=== PATIENT | female | born 1965 | race Caucasian/White ===

== ENCOUNTER 2017-04-04 18:14 | Emergency (ER) | payer SELFPAY ==
[2017-04-04 18:24] VITALS: BP 150/100; PULSE 94; TEMP 98.1; BMI 24.4
--- NOTE | 2017-04-04 19:05 | PDOC ---
History of Present Illness - General Chief Complaint: Injury Stated Complaint: LEFT ANKLE INJURY Time Seen by Provider: 04/04/17 18:23 - History of Present Illness Initial Comments: Chief complaint: Left ankle injury History of present illness: Patient twisted her ankle immediately [employer]. Pain and swelling laterally. Difficulty with weightbearing Review of systems: No distal numbness tingling or weakness of the foot or toes. No knee pain or pain/injury to the more proximal extremity. No other injuries including injuries to the head neck chest abdomen spine pelvis or other extremities. Past medical history: Hypothyroidism, elevated cholesterol. Both controlled Social/family history: Patient is visiting from [facility], has been here for 2 weeks, staying with friends, plans to return in one week. Denies drugs or alcohol or tobacco. No family history of bone or joint disease, early coronary artery disease, metabolic disease including diabetes, or cancer Physical exam: Alert oriented 3 well-developed well-nourished mild distress due to left ankle pain Afebrile, vital signs normal Head and neck atraumatic. PERRLA, ENT clear Chest clear. No chest wall rib cage tenderness or deformity CV regular without murmur rub or gallop Abdomen benign Pelvic and spine without tenderness or deformity Extremities without injury except for the left ankle. There is moderate swelling of the ankle, most prominent laterally, but with point tenderness of the medial and lateral malleoli. There is no deformity. No instability. Pulses are full. No sensory or motor deficits. And good capillary refill in the toes Impression: Sprain rule out fracture Plan: X-ray and further orthopedic management depending on results Past History - Past Medical History Allergies/Adverse Reactions: Allergies Allergy/AdvReac Type Severity Reaction Status Date / Time aspirin Allergy Verified 04/04/17 18:14 Sulfa (Sulfonamide Allergy Verified 04/04/17 18:14 Antibiotics) Home Medications: Ambulatory Orders Ibuprofen 400 mg PO ASDIR PRN 04/04/17 Oxycodone HCl/Acetaminophen [Percocet 10-325 mg Tablet] 1 tab PO Q4HWA PRN #20 tablet MDD 4 04/04/17 COPD: No Other medical history: DENIES - Suicide/Smoking/Psychosocial Hx Smoking History: Never smoked Have you smoked in the past 12 months: No Hx Alcohol Use: No Drug/Substance Use Hx: No *Physical Exam - Vital Signs Last Vital Signs Temp Pulse Resp BP Pulse Ox 98.1 F 94 H 18 150/100 100 04/04/17 18:12 04/04/17 18:12 04/04/17 18:12 04/04/17 18:12 04/04/17 18:12 ED Treatment Course - RADIOLOGY Radiology Studies Ordered: Category Date Time Status ANKLE-LEFT [RAD] Stat Radiology 04/04/17 18:23 Taken Medical Decision Making - Medical Decision Making 04/08/17 07:16 X-ray reveals a nondisplaced non-comminuted fracture of the medial malleolus. There is also a nondisplaced comminuted fracture of the distal fibula. The ankle mortise appears intact, however, the medial malleolar fracture extends into the joint space. There is probably considerable injury to the lateral ankle ligaments as well, given the extent of soft tissue swelling laterally Dr. Burr was contacted by phone. The injury as well as the x-ray findings were discussed. He recommended crutches and nonweightbearing and office follow- up Martinez dressing was applied. Patient was fitted with crutches and appeared to be able to ambulate adequately without weightbearing to the ankle. Analgesics were prescribed and she was instructed to follow-up with orthopedist. No significant pain or other distress upon discharge with family to follow-up as directed. 04/08/17 07:24 *DC/Admit/Observation/Transfer Diagnosis at time of Disposition: Fracture of distal end of tibia Qualifiers: Encounter type: initial encounter Fracture type: closed Fracture morphology: torus Laterality: left Qualified Code(s): S82.312A - Torus fracture of lower end of left tibia, initial encounter for closed fracture - Discharge Dispostion Disposition: HOME Condition at time of disposition: Improved Admit: No - Prescriptions Prescriptions: Oxycodone HCl/Acetaminophen [Percocet 10-325 mg Tablet] 1 tab PO Q4HWA PRN #20 tablet MDD 4 PRN Reason: Severe Pain - Referrals Referrals: Eliseo Burr MD [Staff Physician] - 1 week - Patient Instructions Printed Discharge Instructions: How to Use Crutches, DI for Ankle Fracture, How to Apply an Brennan Wrap Additional Instructions: Do not bear weight on the leg until further consultation with orthopedist Rest ice and elevate until swelling resolves. See orthopedist 5-7 days for further evaluation and treatment. Return to the hospital ER immediately if there is numbness tingling or severe pain in the foot or the toes. - Post Discharge Activity Forms/Work/School Notes: Back to Work
== END 2017-04-04 19:15 | disposition home or self-care (01) ==
LOC: FER 18:14
DX: S82.312A Torus fracture of lower end of left tibia, initial encounter for closed fracture (principal); X58.XXXA Exposure to other specified factors, initial encounter; Y93.89 Activity, other specified; Y92.9 Unspecified place or not applicable
CPT/HCPCS: 73610-TC-LT-FY; 99283-25

== ENCOUNTER 2017-04-11 12:32 | Emergency (ER) | payer SELFPAY ==
--- NOTE | 2017-04-11 13:41 | PDOC ---
History of Present Illness - General Chief Complaint: Injury Stated Complaint: LEFT ANKLE PAIN Time Seen by Provider: 04/11/17 13:15 - History of Present Illness Initial Comments: 04/11/17 17:23 52 years old no past medical history presents to the emergency department secondary to persistent pain in her ankle wrist and knee status post a fall last week. She was diagnosed with a distal tib and fib fracture was placed in an Brennan wrap given crutches and told to follow up with orthopedics. Patient did not follow-up with orthopedics. She returns to the ED for persistent pain symptoms are moderate throbbing persistent constant 5 out of 10 nonradiating no associated factors no exacerbating or alleviating factors. Past History - Past Medical History Allergies/Adverse Reactions: Allergies Allergy/AdvReac Type Severity Reaction Status Date / Time aspirin Allergy Verified 04/04/17 18:14 Sulfa (Sulfonamide Allergy Verified 04/04/17 18:14 Antibiotics) Home Medications: Ambulatory Orders Ibuprofen 400 mg PO ASDIR PRN 04/04/17 Oxycodone HCl/Acetaminophen [Percocet 10-325 mg Tablet] 1 tab PO Q4HWA PRN #20 tablet MDD 4 04/04/17 COPD: No - Suicide/Smoking/Psychosocial Hx Smoking History: Never smoked Have you smoked in the past 12 months: No Hx Alcohol Use: No Drug/Substance Use Hx: No Review of Systems - Review of Systems Comments:: 04/11/17 17:24 ROS: A complete review of 10 out of 10 review of systems is taken and is negative apart from what is previously mentioned below and in the HPI. *Physical Exam - Physical Exam Comments: 04/11/17 17:26 Vitals: Triage Vital signs reviewed General Appearance: no acute distress, well nourished well developed, Head: Atraumatic, Neck: Supple;No Nucal rigidity Chest Wall: Nontender Cardiac: Regular rate and rhythym, no murmurs, no rubs, no gallops, Lungs: Clear to auscultation bilateral, good air movement bilaterally, Abdomen: Soft, non distended, normal bowel sounds, non tender to palpation Extremities: Swelling and ecchymosis to the left ankle. Tenderness palpation over the distal tib-fib and distal fib. Neurovascularly intact distally. Skin: Warm and dry, no rashes or lesions, no rash, no petechiae Neuro: AOX3; Cranial Nerves 2-12 grossly intact, Strength intact to all extremities, Sensation intact to all extremities, Psych: normal mood, normal affect Procedures - Splinting Splint Location: Left: Ankle Pre-Proc Neuro Vasc Exam: normal Hand-Made Type: fiberglass Medical Decision Making - Medical Decision Making Patient status post distal tib-fib fracture of the left ankle last week presents to the ED with persistent pain in the ankle as well as pain in her left wrist and left knee We'll treat with pain meds reimage and reassess Reevaluation 4:45 PM no new or acute fractures noted on imaging. [place] placed in a posterior/you ankle splint. Re-provided with orthopedic follow-up Findings, the need for follow-up, strict return instructions discussed with patient. *DC/Admit/Observation/Transfer Diagnosis at time of Disposition: Fracture of distal end of tibia Qualifiers: Encounter type: subsequent encounter Fracture type: closed Fracture morphology : unspecified fracture morphology Laterality: left Fracture healing: with routine healing Qualified Code(s): S82.302D - Unspecified fracture of lower end of left tibia, subsequent encounter for closed fracture with routine healing - Discharge Dispostion Condition at time of disposition: Good Admit: No - Referrals Referrals: Eliseo Burr MD [Staff Physician] - - Patient Instructions Printed Discharge Instructions: DI for Shinbone Fracture Additional Instructions: Follow-up with Dr. Burr orthopedics. Use crutches at all times while ambulating no weight on foot. Keep elevated as much as possible ice 20 minutes on 20 minutes off. Use the same instructions for your wrist. Continue to wear wrist splint. [id number] Motrin as directed on package and. Return to the emergency department for any concerns. - Post Discharge Activity
[2017-04-11] MEDS ORDERED: traMADol HCL 50 MG TABLET PO ONE (13:48)
[2017-04-11 14:35] VITALS: BP 115/80; PULSE 84; TEMP 99.1; BMI 24.5
[2017-04-11] MEDS ORDERED: traMADol HCL 50 MG TABLET ONE (15:28)
== END 2017-04-11 17:56 | disposition home or self-care (01) ==
LOC: FER 12:32
DX: S82.302D Unspecified fracture of lower end of left tibia, subsequent encounter for closed fracture with routine healing (principal); W18.39XD Other fall on same level, subsequent encounter; Y92.9 Unspecified place or not applicable; Y93.9 Activity, unspecified
CPT/HCPCS: 73110-TC-LR-FY; 73562-TC-LT-FY; 73610-TC-LT-FY; 99282-25